=== PATIENT | male | born 1955 | race Hispanic/Latino ===

== ENCOUNTER 2017-08-14 13:37 | Emergency (ER) | payer SELFPAY ==
[~2017-08-14] VITALS: Ht 167.6 cm; Wt 80.0 kg
[~2017-08-14 13:37] MED LIST: ADALAT CC30 MG PO; CIPROFLOXACN500 MG PO; K-LOR20 MEQ OR; KLOR-CON M2020 MEQ PO; NIFEDIPINE PO; NO MEDS; [UNRECOGNIZED DRUG - OTHER] PO
[2017-08-14] MEDS ORDERED: LISINOPRIL20 MG PO (14:03)
[2017-08-14 14:43] LABS: HEMATOCRIT 43.1 % (39.0-50.0); HEMOGLOBIN 14.9 g/dl (14.0-18.0); IMMATURE GRANULOCYTES 0.3 % (0.0-1.0); MEAN CELL VOLUME 81.6 fL CALC (80.0-100.0); MEAN CORPUSCULAR HGB 28.2 pG CALC (26.0-32.0); MEAN CORPUSCULAR HGB CONC 34.6 g/L CALC (32.0-36.0); NEUT# 5.07 thou/uL (1.82-7.42); RED BLOOD COUNT 5.28 mill/uL (4.70-6.10)
[2017-08-14 14:59] LABS: ANION GAP 18 (6-22 (CALC)); BUN 24 mg/dL (8-23); BUN/CREATININE RATIO 32 (12-20 (CALC)); CARBON DIOXIDE 29 mmol/l (22-30); CHLORIDE 98 mmol/l (95-108); CREATININE 0.8 mg/dL (0.7-1.3); GFR > 60 ML/MIN (>=60 (CALC)); GFR FOR AFR.AMER. > 60 ML/MIN (>=60 (CALC)); POTASSIUM 3.5 mmol/l (3.5-5.1); SODIUM 141 mmol/l (137-146)
[2017-08-14 16:42] VITALS: BP 168/95
== END 2017-08-14 16:35 | disposition home or self-care (01) | DRG 125 ==
LOC: ED 13:37
DX: H11.31 Conjunctival hemorrhage, right eye (principal); I10 Essential (primary) hypertension

== ENCOUNTER 2019-04-18 | Emergency (ER) | payer SELFPAY ==
[~2019-04-18] MED LIST changes: +LISINOPRIL20 MG PO
[2019-04-18 15:03] LABS: URINE BILIRUBIN - DIPSTICK NEGATIVE (NEGATIVE); URINE BLOOD DIPSTICK TRACE-INTACT (NEGATIVE); URINE COLOR YELLOW; URINE GLUCOSE - DIPSTICK NEGATIVE (NEGATIVE); URINE KETONE NEGATIVE (NEGATIVE); URINE LEUK ESTERASE NEGATIVE (NEGATIVE); URINE NITRITE - DIPSTICK NEGATIVE (Negative); URINE PROTEIN - DIPSTICK NEGATIVE (NEG-TRACE); URINE SPECIFIC GRAVITY 1.015; URINE UROBILINOGEN - DIPSTICK 0.2 E.U./dL (0.2)
== END 2019-04-18 15:32 | disposition home or self-care (01) | DRG 696 ==
PROC: 0T9B70Z Drainage of Bladder with Drainage Device, Via Natural or Artificial Opening (ICD-10-PCS; principal; 2019-04-18)
DX: R33.9 Retention of urine, unspecified (principal); I10 Essential (primary) hypertension

== ENCOUNTER 2019-04-20 11:43 | Emergency (ER) | payer SELFPAY ==
[2019-04-20] MEDS ORDERED: TAMSULOSIN0.4 MG PO (12:14)
[2019-04-20 12:25] VITALS: BP 147/77
== END 2019-04-20 12:25 | disposition home or self-care (01) | DRG 700 ==
LOC: ED 11:43
DX: Z46.6 Encounter for fitting and adjustment of urinary device (principal); R33.9 Retention of urine, unspecified; I10 Essential (primary) hypertension